=== PATIENT | male | born 1950 | race African-American/Black ===

== ENCOUNTER 2016-12-28 14:34 | Emergency (ER) | payer OTHER ==
[~2016-12-28] VITALS: Ht 167.6 cm; Wt 55.0 kg
[2016-12-28 14:34] VITALS: Ht 167.6 cm; Wt 55.0 kg
[2016-12-28 14:55] LABS: ADD SCAN DIFF NO
--- NOTE | 2016-12-28 15:14 | RADRPT ---
PROCEDURE: CT brain without contrast CLINICAL INDICATION: Syncope TECHNIQUE: CT of the brain without contrast performed on a multidetector CT scanner, with multiplan ar reformats. One or more of the following dose reduction techniques were used: Automated exposure control, adjustment in mA and / or kV according to patient size, use of iterative reconstructive bonny hnique. CTDIvol = 45 mGy; DLP = 720 mGy-cm. COMPARISON: None available FINDINGS: No acute intracranial hemorrhage is identified. No extra-axial fluid collection is seen. There is no mass effect. No midline shift is identified. The ventricles and sulci are mildly enlarged compatible with volume loss. There are mild areas of hypodensity in the periventricular - deep white matter which are nonspecific but suggestive of chronic small vessel ischemic changes. Collins-white differentiation is preserved. Atherosclerotic calcifications of the intracranial internal carotid arteries are noted. Osseous structures are unremarkable. Mastoid air cells and imaged paranasal sinuses grossly clear. IMPRESSION: 1. No evidence of acute intracranial pathology. 2. Mild volume loss, with mild chronic small vessel ischemic changes. RPTAT: QQ .Wayne Perez MD, Date Time Electronically viewed and signed by .Wayne Perez MD, on 12/28/2016 15:13 .O/
[2016-12-28 15:16] LABS: ANION GAP 17 (8-16); BLOOD UREA NITROGEN 26 mg/dl (7-20); CALCIUM 9.1 mg/dl (8.4-10.2); CARBON DIOXIDE 23 mmol/L (21-31); CHLORIDE 107 mmol/L (97-110); CREATININE 1.16 mg/dl (0.61-1.24); GLUCOSE 228 mg/dl (70-220); SODIUM 143 mmol/L (135-144)
--- NOTE | 2016-12-28 15:22 | ERA ---
ER Documentation Chief Complaint Date/Time DATE: 12/28/16 TIME: 15:20 Chief Complaint BIB [facility] FOR EVAL OF GENERALIZED WEAKNESS. HPI 65-year-old male was brought in by paramedics after an episode of near syncope. 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 When he went inside to run some water on he felt very lightheaded and had to sit down. He did not hit his head. He did not have any chest pain shortness of breath or lightheadedness prior. States that sometimes when he gets a cramp in his leg he gets lightheaded. He thinks he was not drinking enough water. States that he felt lightheaded but these symptoms are quickly resolving currently. ROS All systems reviewed and are negative except as per history of present illness. Medications Home Meds No Active Prescriptions or Reported Meds Allergies Allergies: Coded Allergies: No Known Allergy (Unverified , 12/28/16) Physical Exam Vitals Vital Signs Date Time Temp Pulse Resp B/P Pulse Ox O2 Delivery O2 Flow Rate FiO2 12/28/16 16:06 Nasal Cannula 12/28/16 16:06 98.5 93 24 140/77 100 Nasal Cannula 3.0 12/28/16 15:00 Nasal Cannula 3 12/28/16 14:34 97.9 79 16 119/76 98 Physical Exam Const: [] Mild distress, Head: Atraumatic Eyes: Normal Conjunctiva ENT: Normal External Ears, Nose and Mouth. Dry mucous membranes of the mouth Neck: Full range of motion..~ No meningismus. Resp: Clear to auscultation bilaterally Cardio: Regular rate and rhythm, no murmurs Abd: Soft, non tender, non distended. Normal bowel sounds Skin: No petechiae or rashes Back: No midline or flank tenderness Ext: No cyanosis, or edema, distal pulses intact all 4 extremities Neur: Awake and alert and oriented 3, cranial nerves II through XII intact, no cerebellar finger to nose deficits, no focal deficits Psych: Normal Mood and Affect Result Diagram: 12/28/16 1435 12/28/16 1435 Results 24 hrs Laboratory Tests Test 12/28/16 14:35 White Blood Count 5.410^3/ul Red Blood Count 3.8810^6/ul Hemoglobin 11.5g/dl Hematocrit 35.9% Mean Corpuscular Volume 92.5fl Mean Corpuscular Hemoglobin 29.6pg Mean Corpuscular Hemoglobin Concent 32.0g/dl Red Cell Distribution Width 13.6% Platelet Count 62374^3/UL Mean Platelet Volume 10.6fl Neutrophils % 59.9% Lymphocytes % 30.7% Monocytes % 6.2% Eosinophils % 2.4% Basophils % 0.6% Nucleated Red Blood Cells % 0.0/100WBC Neutrophils # 3.210^3/ul Lymphocytes # 1.610^3/ul Monocytes # 0.310^3/ul Eosinophils # 0.110^3/ul Basophils # 0.010^3/ul Nucleated Red Blood Cells # 0.010^3/ul Prothrombin Time 13.7Sec Prothrombin Time Ratio 1.1 INR International Normalized Ratio 1.05 Activated Partial Thromboplast Time 28.1Sec Sodium Level 143mmol/L Potassium Level 4.0mmol/L Chloride Level 107mmol/L Carbon Dioxide Level 23mmol/L Anion Gap 17 Blood Urea Nitrogen 26mg/dl Creatinine 1.16mg/dl Glucose Level 228mg/dl Calcium Level 9.1mg/dl Troponin I < 0.012ng/ml B-Type Natriuretic Peptide 168PG/ML Current Medications Medications (Trade) Dose Ordered Sig/Nitin Route PRN Reason Start Time Stop Time Status Last Admin Dose Admin Sodium Chloride (NS) 500 ml @ 500 mls/hr Q1H ONCE IV 12/28/16 17:30 12/28/16 18:29 Procedures/MDM Near syncopal episode with mild dehydration patient was working in the heat. No other signs or symptoms concerning for acute stroke or acute coronary syndrome. No ischemia on EKG. Patient was monitored in the emergency room for hours and had no arrhythmia. He was given a choice of whether he would like to stay in the hospital go home and he said he did not like to stay in the hospital currently. He was given 500 cc of IV fluid for his dehydration and hyperglycemia with a sugar of 228 after which he was completely asymptomatic. States that he feels like his normal self once again. His is present at bedside. My discharge instructions see his primary care doctor in the next 1-2 days and obtain an echocardiogram as an outpatient. 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 I see no pulmonary edema, pneumothorax, no widened mediastinum, no fractures CT head interpretation: I see no acute process. I see no hemorrhage, see no mass-effect or midline shift. No skull fractures Departure Diagnosis: Primary Impression: Near syncope Additional Impressions: Mild dehydration Hyperglycemia due to type 2 diabetes mellitus Condition: Stable RENETTA EDMOND DO Dec 28, 2016 15:22
[2016-12-28 15:24] LABS: BASOPHILS % 0.6 % (0.0-2.0); EOSINOPHILS # 0.1 10^3/ul (0.0-0.5); EOSINOPHILS % 2.4 % (0.0-7.0); HEMATOCRIT 35.9 % (42.0-52.0); HEMOGLOBIN 11.5 g/dl (14.0-18.0); LYMPHOCYTES # 1.6 10^3/ul (0.8-2.9); LYMPHOCYTES % 30.7 % (15.0-51.0); MEAN CORPUSCULAR HEMOGLOBIN 29.6 pg (29.0-33.0); MEAN CORPUSCULAR VOLUME 92.5 fl (82.0-101.0); MEAN PLATELET VOLUME 10.6 fl (7.4-10.4); MONOCYTE # 0.3 10^3/ul (0.3-0.9); MONOCYTES % 6.2 % (0.0-11.0); NEUTROPHIL # 3.2 10^3/ul (1.6-7.5); NEUTROPHILS % 59.9 % (39.0-77.0); PLATELET COUNT 192 10^3/UL (140-415); RED BLOOD COUNT 3.88 10^6/ul (4.70-6.10); RED CELL DISTRIBUTION WIDTH 13.6 % (11.5-14.5); WHITE BLOOD COUNT 5.4 10^3/ul (4.8-10.8)
[2016-12-28 15:27] LABS: INR 1.05; PROTIME 13.7 Sec (12.2-14.2); PT RATIO 1.1
[2016-12-28 15:28] LABS: B-TYPE NATRIURETIC PEPTIDE 168 PG/ML (0-125); PARTIAL THROMBOPLASTIN TIME 28.1 Sec (25.0-35.0)
--- NOTE | 2016-12-28 15:29 | RADRPT ---
PROCEDURE: XR Chest. CLINICAL INDICATION: Chest pain. TECHNIQUE: Single frontal view. COMPARISON: None. FINDINGS: The lungs are clear. The heart size is normal. There is no pleural effusion. There is no pneumothorax. IMPRESSION: 1. Normal chest radiograph. RPTAT: QQ .Saji Zamorano MD, Date Time Electronically viewed and signed by .Saji Zamorano MD, on 12/28/2016 15:29 .R/
[2016-12-28 15:36] LABS: TROPONIN-I < 0.012 ng/ml (0.00-0.12)
[2016-12-28] MEDS ORDERED: SOD CHLORIDE 0.9% 500 ML IV ONE (17:30)
[2016-12-28 18:08] VITALS: BP 116/72; PULSE 81; RESP 20; TEMP 98
== END 2016-12-28 18:35 | disposition home or self-care (01) ==
LOC: E/R 14:34
DX: R55 Syncope and collapse (principal); E86.0 Dehydration; E11.65 Type 2 diabetes mellitus with hyperglycemia; R06.02 Shortness of breath
CPT/HCPCS: 36415; 70450; 71010; 80048; 83880; 84484; 85025; 85610; 85730; 93005; 99285; J7040